=== PATIENT | male | born 1950 | race Caucasian/White ===

== ENCOUNTER 2017-04-27 12:58 | Emergency (ER) | payer MEDICARE, OTHER | END 2017-04-27 13:15 | disposition home or self-care (01) | LOC: ER 12:58 | DX: S20.96XA Insect bite (nonvenomous) of unspecified parts of thorax, initial encounter (principal); S40.861A Insect bite (nonvenomous) of right upper arm, initial encounter; W57.XXXA Bitten or stung by nonvenomous insect and other nonvenomous arthropods, initial encounter | CPT/HCPCS: 99282; 99283 ==